=== PATIENT | female | born 1950 | race Caucasian/White ===

== ENCOUNTER → 2016-10-08 | Outpatient (CLI) | payer BC ==
[~2016-10-08] MED LIST: 5HTP PO; ASPI81TA28 PO; CHOL400T PO; COEN1CAP17 PO; CYAN10005 PO; FEXO1TAB49 PO; MULT-506 PO; NUTRTAB PO; OMEP40CA PO; PRAV20TA PO; VALS160T58 PO
[2016-10-08 17:57] LABS: BASO % 0.5 %; BASO ABS # 0.04 K/uL (0-0.2); COMPLETE YES; EOS % 3.7 %; HEMATOCRIT 38.3 % (37-47); IG% 0.4 %; LYMPH % 32.1 %; LYMPH ABS # 2.61 K/uL (1.2-3.4); MEAN CELL VOLUME 86.8 fL (80-100); MEAN CORPUSCULAR HEMOGLOBIN 29.7 pg (25-34); MEAN CORPUSCULAR HGB CONC 34.2 g/dl (32-36); MEAN PLATELET VOLUME 8.7 fL (7.4-10.4); MONO % 7.5 %; NEUT % 55.8 %; PLATELET COUNT 465 K/uL (130-400); RED BLOOD COUNT 4.41 M/uL (4.2-5.4); WHITE BLOOD COUNT 8.12 K/uL (4.8-10.8)
[2016-10-08 19:23] LABS: ALB/GLOB RATIO 1.2 (0.9-2); ALT/SGPT 28 U/L (12-78); AST/SGOT 13 U/L (15-37); BLOOD UREA NITROGEN 23 mg/dl (7-18); BUN/CREATININE RATIO 18.9 (10-20); CALCIUM 8.8 mg/dl (8.5-10.1); CARBON DIOXIDE 24 mmol/L (21-32); CHLORIDE 107 mmol/L (98-107); CHOLESTEROL 184 mg/dl (0-200); GLUCOSE 131 mg/dl (70-99); SODIUM 140 mmol/L (136-145); TRIGLYCERIDES 192 mg/dl (0-150); VERY LOW DENSITY LIPOPROT CALC 38 mg/dl
[2016-10-08 19:34] LABS: ALKALINE PHOSPHATASE 106 U/L (45-117); CHOLESTEROL/HDL RATIO 4.6; HDL CHOLESTEROL 40 mg/dl; LDL CHOLESTEROL CALCULATED 106 mg/dl
== END | disposition home or self-care (01) ==
LOC: C.LABMFLN 13:43
PROVIDERS: ATTEND Family Medicine
DX: I10 Essential (primary) hypertension (principal); E78.5 Hyperlipidemia, unspecified

== ENCOUNTER → 2017-02-24 | Day surgery (SDC) | payer OTHER, BC ==
[2017-02-22 14:27] VITALS: Ht 167.6 cm; Wt 102.3 kg
[~2017-02-24] VITALS: Ht 167.6 cm; Wt 102.3 kg
[~2017-02-24] MED LIST changes: +500ML BSS 0.3ML EPI 1:1000PF IRRIG ONE; +ACETAMINOPHEN 325 MG TAB PO PRN; +AMVISC PLUS 0.8ML SYRINGE INT OCU ONE; +ATROPINE SULFATE 0.1 MG/ML 5ML SYR IV PRN; +BETAXOLOL HCL 0.25% OP SUSP PER DROP CHARGE OPL SCH; +BRIMONIDINE TART 0.2% OP SOLN PER DROP CHARGE ONE; +BSS FLUSH ONE; +DVN80125 PO; +ENDOCOAT 0.85ML SYRINGE INT OCU ONE; +EpHEDrine SULFATE INJ 50 MG/ML AMP IV PRN; +EpINEphrine INJ 1MG/ML AMP 1 MG/ML AMP ONE; +LACTATED RINGER'S 1000ML 500 ML IV SCH; +LIDOCAINE 4% OP SOLN DROP CHARGE ONE; +LIDOCAINE 4% OP SOLN DROP CHARGE OPL SCH; +LIDOCAINE HCL 1% MPF 2 ML VIAL ONE; +MELA10TA2 PO; +MENOPAUSE SUPPORT PO; +MIDAZOLAM HCL 1 MG/ML 2ML VIAL ONE; +MIX: 4ML BSS 1ML EPI 1:1000 PF INSTIL ONE; +MOXIFLOXACIN OPH SOLN PER DROP CHARGE ONE; +NURSING VERBAL MED ORDER ONE; -NUTRTAB PO; +OCUCOAT 1 ML SOLN IO ONE; -OMEP40CA PO; +OMEP40CA41 PO; +POVIDONE-IODINE OP SOLN 30 ML BTL ONE; -PRAV20TA PO; +PROPARACAINE 0.5% OP SOLN PER DROP CHARGE OPL SCH; +PRVC/40 PO; +TOBRAMYCIN/DEXAMETHASONE OPH OINT PER APPLN CHARGE ONE; -VALS160T58 PO
[2017-02-24 09:38] VITALS: TEMP 36.7
[2017-02-24] MEDS: PHENYLEPHRINE HCL 2.5% OP SOLN PER DROP CHARGE OPL SCH ×2 (09:49→09:54)
[2017-02-24] MEDS: TROPICAMIDE 1% OP SOLN PER DROP CHARGE OPL SCH ×2 (09:50→09:55)
--- NOTE | 2017-02-24 09:50 | History & Physical Bridge - [place] ---
H&P Re-Evaluation Bridge Note: I have examined the patient, reviewed the History & Physical and in the interval since the performance of the History & Physical I have noted the following changes of clinical significance: No changes noted
[2017-02-24] MEDS: CYCLOPENTOLATE HCL 1% OP SOLN PER DROP CHARGE OPL SCH ×2 (09:51→09:56)
[2017-02-24] MEDS: MOXIFLOXACIN OPH SOLN PER DROP CHARGE OPL SCH ×2 (09:52→10:06)
--- NOTE | 2017-02-24 10:33 | Discharge Instructions-SurgCtr ---
Discharge Instructions Date of Service Feb 24, 2017. Visit Reason for Visit: Cataract Left Eye Discharge Discharge Diagnosis / Problem: lens implant left eye Discharge Goals Goal(s): Improve function Activity Recommendations Activity Limitations: resume your previous activity Lifting Limitations: no more than 10 pounds Exercise/Sports Limitations: gradually increase as tolerated May Resume Sexual Activity: when tolerated Shower/Bathe: tomorrow Driving or Machine Use: resume 1 day after discharge Anesthesia . Post Anesthesia Instructions: If you have had General Anesthesia or IV Sedation: * Do not drive today. * Resume driving when surgeon permits. * Do not make important decisions or sign legal documents today. * Call surgeon for: 1. Temperature elevations greater than 101 degrees F. 2. Uncontrollable pain. 3. Excessive bleeding. 4. Persistent nausea and vomiting. 5. Medication intolerance (nausea, vomiting or rash). * For nausea and vomiting use only clear liquids such as: tea, soda, bouillon until nausea subsides, then gradually increase diet as tolerated. * If you have any concerns or questions, call your surgeon's office. If physician is unavailable and it is an emergency, call 911 or go to the nearest emergency room. . Instructions / Follow-Up Instructions / Follow-Up ACTIVITY RECOMMENDATIONS: * Light activities. * Mild irritation and blurred vision are common for the first few days. * You may walk outside, read, watch television. * Redness around the white part of the eye is common. MEDICATIONS: Resume previous medications unless instructed otherwise by your surgeon. Start all eye drops at 1 pm today: * Eye drops (today and tomorrow): Prednisone - one drop in operative eye every 3 hours while awake Ofloxacin - one drop in operative eye every 3 hours while awake SPECIAL CARE INSTRUCTIONS: * Tape plastic shield over eye to sleep at night. Call your doctor at with any concerns or problems. FOLLOW UP VISIT: Follow-up with Dr Stokes at [place] office as scheduled. Diet Recommendations Home Diet: no limitations Procedures Procedures Performed: cataract extraction with lens implant Pending Studies Studies pending at discharge: no Medical Emergencies . Who to Call and When: Medical Emergencies: If at any time you feel your situation is an emergency, please call 911 immediately. . Non-Emergent Contact Non-Emergency issues call your: [facility] Helper Call Non-Emergent contact if: your pain is not controlled [phone] . . "Provider Documentation" section prepared by Augustine Stokes. .
--- NOTE | 2017-02-24 10:35 | [facility] Operative Report ---
Operative Report Date of Service Feb 24, 2017. Operative Report 1. PREOPERATIVE DIAGNOSIS: Senile nuclear cataract, left eye. 2. POSTOPERATIVE DIAGNOSIS: Senile nuclear cataract, left eye. 3. PROCEDURE: Phacoemulsification of left cataract with posterior chamber lens implant, type [employer] Lomb, model Hoya [id number], power +22.0 diopters. ANESTHESIA: Local standby. SURGEON: Dr. Stokes. COMPLICATIONS: None. OPERATING TIME: 10 minutes. 4. OPERATION AND FINDINGS: DESCRIPTION OF PROCEDURE: The left pupil was dilated. The anesthetic was administered using a topical technique. The left eye was prepped and draped. A speculum was placed. A clear corneal incision was formed. The chamber was filled with Amvisc Plus and Endocoat. Epinephrine solution was used. A paracentesis was placed. A capsulorrhexis was performed. The nucleus was hydrodissected. The lens was removed with phacoemulsification. Time was 2.29 seconds. The aspiration unit was used to remove the cortex. The capsule was filled with Amvisc Plus. The lens implant was folded and placed into the capsule. The incision was hydrated. The Amvisc was aspirated. The wound was secure. The chamber was deep. The pupil was round. Brimonidine, TobraDex ointment and Vigamox solution were placed. The speculum was removed. The patient was returned to the Recovery Room in stable condition. I attest to the content of the Intraoperative Record and any orders documented therein. Any exceptions are noted below. The scribe's documentation has been prepared in my presence, under my direction and personally reviewed by me in its entirety. I confirm that the note above accurately reflects all work, treatment, procedures, and medical decision making performed by me. I personally scribed for Augustine Stokes M.D. ([email or web address]) on 02/24/17 at 10:35. Electronically submitted by Marcelina Suarez ([email or web address]).
--- NOTE | 2017-02-24 10:58 | Anesthesia Progress Nt - [facility] ---
Anesthesia Post Op Note Date & Time Feb 24, 2017 at 10:58 Vital Signs Pain Intensity: 5.0 Vital Signs Past 12 Hours Date Time Temp Pulse Resp B/P (MAP) Pulse Ox O2 Delivery O2 Flow Rate FiO2 02/24/17 10:46 76 16 162/102 (122) 94 Room Air 02/24/17 09:38 36.7 83 18 149/88 (108) 93 Room Air Notes Mental Status: alert / awake / arousable, participated in evaluation Pt Amnestic to Procedure: Yes Nausea / Vomiting: adequately controlled Pain: adequately controlled Airway Patency, RR, SpO2: stable & adequate BP & HR: stable & adequate Hydration State: stable & adequate Anesthetic Complications: no major complications apparent
[2017-02-24 11:07] VITALS: BP 146/84; PULSE 76; O2SAT 95
== END | disposition home or self-care (01) ==
LOC: X.SURG 09:16
PROVIDERS: ATTEND Specialist
DX: H25.12 Age-related nuclear cataract, left eye (principal); I10 Essential (primary) hypertension; E66.9 Obesity, unspecified; Z88.2 Allergy status to sulfonamides; E78.5 Hyperlipidemia, unspecified

== ENCOUNTER 2019-01-25 06:42 | Inpatient (IN) ==
--- NOTE | 2018-12-26 16:45 | PAT Medication Instructions ---
Medication Instructions Date of Service December 26, 2018 Home Medications cyanocobalamin (vit B-12) 100 mcg tablet 1,000 mcg PO DAILY cholecalciferol (vitamin D3) 2,000 unit tablet 2,000 units PO DAILY fluticasone furoate 27.5 mcg/actuation nasal spray,suspension 2 sprays INTRANASAL DAILY PRN multivitamin tablet 1 tab PO DAILY 5-hydroxytryptophan (5-HTP) 100 mg PO HS aspirin [Aspir-81] 81 mg PO HS biotin 5,000 mcg PO DAILY black cohosh [Menopause Support] 20 mg PO DAILY krill oil 500 mg PO DAILY melatonin 10 mg PO HS PRN omeprazole 40 mg PO HS valsartan-hydrochlorothiazide 1 tab PO HS STOP taking 2 weeks before surgery (or as soon as possible if surgery is within 2 weeks) 5-hydroxytryptophan (5-HTP) 100 mg PO HS biotin 5,000 mcg PO DAILY black cohosh [Menopause Support] 20 mg PO DAILY krill oil 500 mg PO DAILY DO NOT take the morning of surgery cyanocobalamin (vit B-12) 100 mcg tablet 1,000 mcg PO DAILY cholecalciferol (vitamin D3) 2,000 unit tablet 2,000 units PO DAILY multivitamin tablet 1 tab PO DAILY Take morning of surgery With a small sip of water, OTHERWISE NOTHING TO EAT OR DRINK AFTER MIDNIGHT: fluticasone furoate 27.5 mcg/actuation nasal spray,suspension 2 sprays INTRANASAL DAILY PRN (if needed) Take evening before surgery fluticasone furoate 27.5 mcg/actuation nasal spray,suspension 2 sprays INTRANASAL DAILY PRN (if needed) aspirin [Aspir-81] 81 mg PO HS melatonin 10 mg PO HS PRN (if needed) omeprazole 40 mg PO HS valsartan-hydrochlorothiazide 1 tab PO HS Other Notes If you have any questions please call us at [phone] or [phone] or [phone] or [phone]
--- NOTE | 2018-12-27 11:25 | Anesthesiology Consultation ---
Date of Service December 27, 2018 Assessment & Plan (1) Encounter for pre-operative examination: - Awaiting review preop testing. - Awaiting surgeon-ordered PCP clearance scheduled 01/09 (Patricia Elizondo, PAC; [facility]). - Hx of glidescope intubation: s/p Right shoulder arthroscopy: 05/23/15: Grade view 1, Glidescope#3, ETT 7.5 at [facility] [place] Chart Review Chart Review: Patient seen in Pre Admission Testing Teaching & Discussion Pre-Anesthesia Teaching/Discussion Notes: Instructed NPO after midnight before surgery,except medications with 15 cc of water. Medication instructions provided according to the PAT guidelines. History Surgery Operation Date: 01/25/19 09:50 Proposed Procedures p Right Total Knee Arthroplasty - Bobby Prado MD Height/Weight Height: 5 ft 6 in Weight: 104.1 kg Allergies Allergy/AdvReac Type Severity Reaction Status Date / Time propoxyphene AdvReac Unknown felt Verified 12/27/18 11:23 [From Tanesha-N] "high" Sulfa (Sulfonamide AdvReac Unknown dizziness, Verified 12/27/18 11:23 Antibiotics) lightheadedness DEMEROL AdvReac Unknown felt "high" Uncoded 12/27/18 11:23 Medications Home Medications Medication Instructions Recorded Confirmed Last Taken cyanocobalamin (vit B-12) 100 mcg 1,000 mcg PO DAILY tab 09/19/18 12/22/18 Unknown tablet cholecalciferol (vitamin D3) 2,000 2,000 units PO DAILY tab 09/27/18 12/22/18 Unknown unit tablet fluticasone furoate 27.5 2 sprays INTRANASAL DAILY PRN ml 10/18/18 12/22/18 Unknown mcg/actuation nasal spray,suspension multivitamin tablet 1 tab PO DAILY 10/18/18 12/22/18 Unknown 5-hydroxytryptophan (5-HTP) 100 mg PO HS 12/22/18 12/22/18 Unknown aspirin [Aspir-81] 81 mg PO HS 12/22/18 12/22/18 Unknown biotin 5,000 mcg PO DAILY 12/22/18 12/22/18 Unknown black cohosh [Menopause Support] 20 mg PO DAILY 12/22/18 12/22/18 Unknown krill oil 500 mg PO DAILY 12/22/18 12/22/18 Unknown melatonin 10 mg PO HS PRN 12/22/18 12/22/18 Unknown omeprazole 40 mg PO HS 12/22/18 12/22/18 Unknown valsartan-hydrochlorothiazide 1 tab PO HS 12/22/18 12/22/18 Unknown Past Medical History Medical History History of difficult intubation Right shoulder arthroscopy: 05/23/15: Grade view 1, Glidescope#3, ETT 7.5 at [facility] [place] Acid reflux disease controlled Hiatal hernia History of high cholesterol Hypertension Numbness and tingling of right arm + occasional neck pain Osteoarthritis Snores no apneic events TMJ (temporomandibular joint disorder) rare pain; remote hx locking x several years ago Thrombocytosis ? essential vs secondary-- previously followed with hematology but discharged in setting of stable findings/unremarkable workup/negative personal hx of DVT/PE/blood clots Exercise / Class Metabolic Activity III < 4 Walking/Shop/Light housework Past Surgical History Surgical History History of arthroscopy of right knee History of colonoscopy History of hysterectomy History of shoulder surgery RIGHT Past Anesthesia History Difficult Airway (Right shoulder arthroscopy: 05/23/15: Grade view 1, Glidescope#3, ETT 7.5 at [facility] [place]), No Family Hx of Anesthesia Complications and Other *Awareness with cataracts surgery* History of PONV No Hx of PONV and Hx of Motion Sickness (mild) Social History Smoking Status: Never smoker Do You Dip or Chew Tobacco: No Hx Alcohol Use: No Hx Substance Use: No substance use type: does not use Review of Systems Rare heart "racing" feeling. Reflux controlled. Patient denies chest pain, shortness of breath, cough, wheezing, palpitations. Physical Exam Vital Signs VITALS BP 127/82 P 91 TEMP 98.2 SP02 93%RA RESP 18 PHYSICAL Full neck and c-spine range of motion. Full TMJ range of motion. TMD 2.5 finger breaths Mallampati Score 4 (small oral opening) Dentition: intact, crown on molar Lungs: clear throughout to auscultation Cardiac: regular rate and rhythm, no murmurs noted Spine: normal Carotid arteries: negative bruit Extremities: no edema
--- NOTE | 2018-12-27 12:16 | XRay Report ---
XR chest Pre-admission PA/Lat CLINICAL HISTORY: 68 years-old Female presenting with preoperative assessment. TECHNIQUE: PA and lateral views of the chest were obtained. COMPARISON: 05/23/2015. FINDINGS: Atherosclerosis of the aortic arch. Cardiac silhouette normal in size. Lungs and pleural spaces clear . Degenerative changes of the thoracic spine. Upper abdomen normal. IMPRESSION: 1. No acute cardiopulmonary disease. Electronically signed by: Earnest Meza M.D. 12/27/2018 12:15 PM
[2018-12-27 13:20] LABS: Basophils # (auto) 0.03 K/uL (0-0.2); Basophils % (auto) 0.4 %; Eosinophils # (auto) 0.28 K/uL (0-0.5); Eosinophils % (auto) 3.6 %; Hematocrit (blood only) 39.8 % (37-47); Hemoglobin 13.7 g/dL (12.0-16.0); Immature Granulocytes # (auto) 0.03 K/uL (0.00-0.02); Immature Granulocytes % (auto) 0.4 %; Lymphocytes # (auto) 2.49 K/uL (1.2-3.4); Mean Corpuscular Hemoglobin 30.4 pg (25-34); Mean Corpuscular Hgb Conc 34.4 g/dL (32-36); Mean Corpuscular Volume 88.2 fL (80-100); Mean Platelet Volume 9.1 fL (7.4-10.4); Monocytes # (auto) 0.39 K/uL (0.11-0.59); Neutrophils # (auto) 4.57 K/uL (1.4-6.5); Neutrophils % (auto) 58.6 %; Platelet Count 496 K/uL (130-400); RDW Standard Deviation 41.6 fL (36.4-46.3); Red Blood Count 4.51 M/uL (4.2-5.4); White Blood Count 7.79 K/uL (4.8-10.8)
[2018-12-27 13:28] LABS: BUN Creatinine Ratio 22.8 (10-20); Calcium 9.4 mg/dl (8.5-10.1); Creatinine Clr Calc Pharmacy 66.5 ml/min; Est GFR (African American) 67.5; Est GFR (Non-African American) 58.3
[2018-12-27 13:28] LABS: Appearance Urine Clear (Clear); Bilirubin Urine Negative (Negative); Blood Urine Negative (Negative); Color Urine Yellow; Glucose Urine UA Negative (Negative); Ketones Urine Negative (Negative); Leukocyte Esterase Urine Negative (Negative); Nitrite Urine Negative (Negative); Protein Urine Negative (Negative); Specific Gravity Urine 1.024 (1.000-1.030); Urobilinogen Urine Negative (Negative); pH Urine 5.5 (4.5-7.5)
[2018-12-27 13:31] LABS: Estimated Average Glucose 111 mg/dl; Hemoglobin A1C 5.5 % (4.5-5.6)
[2018-12-27 13:34] LABS: Partial Thromboplastin Time 28.3 Seconds (21.0-31.0); Prothrombin Time 10.3 Seconds (9.0-12.0)
--- NOTE | 2019-01-24 21:00 | History and Physical Report ---
DATE OF ADMISSION: 01/25/2019 CHIEF COMPLAINT: Chronic right knee pain and instability. HISTORY OF PRESENT ILLNESS: This is a 68-year-old female patient of Dr. Prado'yasmin complaining of chronic right knee pain and instability, longstanding, now progressively getting worse. The patient has failed conservative treatment including intra-articular injections, viscous supplementations, anti-inflammatories, home exercise program and the use of a brace. The patient has increased pain with weightbearing activities and her pain does interfere with her activities of daily living. The patient has been diagnosed with end-stage osteoarthritis per clinical and radiographic exams. The patient wished to proceed with a right total knee arthroplasty. PAST MEDICAL HISTORY: Hypertension, sleep apnea, osteoarthritis, TMJ, acid reflux, hiatal hernia, obesity. SOCIAL HISTORY: Nonsmoker, nondrinker. PAST SURGICAL HISTORY: Shoulder surgery in 2014. FAMILY HISTORY: Noncontributory. REVIEW OF SYSTEMS: Chronic right knee pain and instability. Otherwise, denies any shortness of breath, chest pain, nausea, vomiting or other joint complaints. MEDICATIONS: Aspirin 81 mg daily, melatonin 10 mg daily, vitamin B12 1000 mcg daily, valsartan 160/25 daily, omeprazole 40 mg 2 times daily, fexofenadine 180 mg daily, multivitamin daily. ALLERGIES: INCLUDE DEMEROL AND SULFA. PHYSICAL EXAMINATION: GENERAL: Well-developed, well-nourished 68-year-old female in no acute distress. She is alert and oriented x3 and pleasant. HEENT: Normocephalic, atraumatic. Extraocular motions are intact. Pupils are equal and reactive to light. HEART: Regular rate and rhythm, no murmurs appreciated. LUNGS: Clear. ABDOMEN: Soft, nontender, bowel sounds present. EXTREMITIES: Right knee limited range of motion of 0-115 positive effusion. Medial joint line tenderness. Neutral alignment with 5/5 strength. NEUROLOGIC: Neurovascularly, she is intact in her right lower extremity. DIAGNOSES: Right knee end-stage osteoarthritis, hypertension, sleep apnea, osteoarthritis, TMJ, acid reflux, hiatal hernia, obesity. PLAN: The patient was advised of her diagnosis. Indications, risks, benefits, postop course have all been reviewed. The patient wish to proceed with a right total knee arthroplasty. Necessary consent forms, preoperative testing and clearances will be obtained.
[~2019-01-25 06:42] MED LIST changes: -500ML BSS 0.3ML EPI 1:1000PF IRRIG ONE; -5HTP PO; -ACETAMINOPHEN 325 MG TAB PO PRN; +ACETAMINOPHEN 500 MG TAB PO SCH; -AMVISC PLUS 0.8ML SYRINGE INT OCU ONE; -ASPI81TA28 PO; -ATROPINE SULFATE 0.1 MG/ML 5ML SYR IV PRN; -BETAXOLOL HCL 0.25% OP SUSP PER DROP CHARGE OPL SCH; -BRIMONIDINE TART 0.2% OP SOLN PER DROP CHARGE ONE; -BSS FLUSH ONE; +CEFAZOLIN 2000MG 2,000 MG/15 ML SYR IV SCH; -CHOL400T PO; -COEN1CAP17 PO; -CYAN10005 PO; -DVN80125 PO; -ENDOCOAT 0.85ML SYRINGE INT OCU ONE; -EpHEDrine SULFATE INJ 50 MG/ML AMP IV PRN; -EpINEphrine INJ 1MG/ML AMP 1 MG/ML AMP ONE; +FAMOTIDINE 20 MG TAB PO SCH; -FEXO1TAB49 PO; +GABAPENTIN 300 MG CAP PO SCH; -LACTATED RINGER'S 1000ML 500 ML IV SCH; -LIDOCAINE 4% OP SOLN DROP CHARGE ONE; -LIDOCAINE 4% OP SOLN DROP CHARGE OPL SCH; -LIDOCAINE HCL 1% MPF 2 ML VIAL ONE; +LR 500ML BOLUS, THEN 15ML/HR IV SCH; -MELA10TA2 PO; -MENOPAUSE SUPPORT PO; +METOCLOPRAMIDE HCL 10 MG TABLET PO SCH; -MIDAZOLAM HCL 1 MG/ML 2ML VIAL ONE; -MIX: 4ML BSS 1ML EPI 1:1000 PF INSTIL ONE; -MOXIFLOXACIN OPH SOLN PER DROP CHARGE ONE; -MULT-506 PO; -NURSING VERBAL MED ORDER ONE; -OCUCOAT 1 ML SOLN IO ONE; -OMEP40CA41 PO; -POVIDONE-IODINE OP SOLN 30 ML BTL ONE; -PROPARACAINE 0.5% OP SOLN PER DROP CHARGE OPL SCH; -PRVC/40 PO; +ROPIVACAINE 0.5% HCL/PF 150 MG, BUPIVACAINE 0.5% MPF 30 ML, EPINEPHrine 30MG/30ML (OR U... INSTIL SCH; -TOBRAMYCIN/DEXAMETHASONE OPH OINT PER APPLN CHARGE ONE; +TRANEXAMIC ACID 1,000 MG **IV Intra-op IV SCH; +TRANEXAMIC ACID 1,000 MG **IV Pre-op IV SCH; +dexAMETHasone 4 MG TAB PO SCH
[2019-01-25] MEDS ORDERED: BUPIVACAINE/EPINEPHRINE 0.25% 1:200,000 30 ML VIAL ONE (07:08)
[2019-01-25] MEDS ORDERED: DEXAMETHASONE SOD INJ 4 MG/ML VIAL ONE (07:08)
[2019-01-25] MEDS ORDERED: BUPIVACAINE 0.5 % 5 MG/1 ML PF 10ML VIAL ONE (07:08)
[2019-01-25] MEDS ORDERED: MIDAZOLAM HCL 1 MG/ML 2ML VIAL ONE ×2 (08:37)
[2019-01-25] MEDS ORDERED: fentaNYL citrate 100 MCG/2 ML VIAL ONE (08:37)
[2019-01-25] MEDS ORDERED: ONDANSETRON INJ 2 MG/ML 2 ML VIAL ONE (08:40)
[2019-01-25] MEDS ORDERED: PROPOFOL IV EMULSION 10 MG/ML 20 ML VIAL IV ONE (08:40)
[2019-01-25] MEDS ORDERED: LIDOCAINE HCL 2% 2 ML VIAL/AMP(20MG/ML) INFIL ONE (08:40)
[2019-01-25] MEDS ORDERED: ONDANSETRON INJ 2 MG/ML 2 ML VIAL IV PRN ×2 (09:07→13:10)
[2019-01-25] MEDS ORDERED: ePHEDrine sulfate 50 MG/ML AMP IV PRN (09:07)
[2019-01-25] MEDS ORDERED: fentaNYL citrate 100 MCG/2 ML VIAL IV PRN (09:07)
[2019-01-25] MEDS ORDERED: ATROPINE SULFATE 0.1 MG/ML 10ML SYR IV PRN (09:07)
--- NOTE | 2019-01-25 09:40 | History & Physical Bridge Note ---
Date of Service January 25, 2019 History & Physical Bridge Note I have examined the patient, reviewed the History & Physical and in the interval since the performance of the History & Physical I have noted the following changes of clinical significance: no changes noted
[2019-01-25] MEDS ORDERED: BACITRACIN INJ 50,000 UNIT VIAL ONE (09:47)
[2019-01-25] MEDS ORDERED: ORTHO JOINT ANESTHETIC ONE (09:47)
--- NOTE | 2019-01-25 11:56 | Post Operative Brief Note ---
Immediate Post Op Note v1 Date of Surgery January 25, 2019 Pre & Post Diagnosis Operation Date: 01/25/19 09:40 Pre-Op Diagnosis: Right Knee End-Stage Osteoarthritis Post-Op Diagnosis: Right Knee End-Stage Osteoarthritis I identified the patient and participated in the time-out.: Yes Procedure Operation Date: 01/25/19 09:40 Actual Procedures p Right Total Knee Arthroplasty(Right) - Bobby Prado MD Surgeon Bobby Prado MD Grain Picker Colin MCCOY Estimated Blood Loss 5 Findings Consistent with Post-Op Diagnosis Specimens Bone cuts Drains Hemovac Drain Anesthesia Type MAC Spinal Regional Complications none Disposition Disposition: Recovery Room Overlapping Procedure I was immediately available: during the entire case.
--- NOTE | 2019-01-25 12:22 | XRay Report ---
XR knee RT 2V routine CLINICAL HISTORY: 68 years-old Female presenting with Surgical Post Op. TECHNIQUE: Frontal and lateral views of the right knee were obtained. COMPARISON: None. FINDINGS: Postsurgical changes of total right knee arthroplasty with patellar resurfacing. Surgical drain in pl willy. Overlying skin fadumo. Expected intra-articular and soft tissue emphysema. No periprosthetic fr acture. No malalignment. IMPRESSION: Expected postsurgical appearance status post total right knee arthroplasty with patellar resurfacing. Electronically signed by: Earnest Meza M.D. 01/25/2019 12:21 PM
--- NOTE | 2019-01-25 12:23 | Operative Report ---
Post Operative Report Pre & Post Diagnosis Operation Date: 01/25/19 09:40 Pre-Op Diagnosis: Right Knee End-Stage Osteoarthritis Post-Op Diagnosis: Right Knee End-Stage Osteoarthritis I identified the patient and participated in the time-out.: Yes Procedure Operation Date: 01/25/19 09:40 Actual Procedures p Right Total Knee Arthroplasty(Right) - Bobby Prado MD Surgeon Bobby Prado MD Pediatrician Colin MCCOY Estimated Blood Loss 5 Findings Consistent with Post-Op Diagnosis Specimens bone cuts Drains 2 Hemovac Anesthesia Type MAC Spinal Regional Complications none Disposition Accompanied Patient To Recovery: No Disposition: Recovery Room Indications 68-year-old female with a chronic bilateral knee pain right greater than left. X-rays demonstrate that she is close to if not [id number] medial compartment on flexion views and she has subluxation of femur on the tibia and she has moderately advanced patellofemoral osteoarthritis. Patient is failed conservative management. Description of Procedure Patient taken to the operating room placed supine on the operating table and anesthetized under spinal MAC regional anesthesia. Exam under anesthesia demonstrated moderately large knee effusion good range of motion crepitation with range of motion no instability. A pneumatic tourniquet was placed about the moderately obese thigh of the right lower extremity. The right lower extremity was prepped and draped in usual fashion. Leg was elevated exsanguinated with an Esmarch bandage and the pneumatic was raised to 325 mm mercury. An anterior incision was made across the right knee. The skin was incised longitudinally subcutaneous flaps were elevated and an incision was made through the medial retinaculum extending up into the mid third of the quadriceps tendon and extended down to the medial tibial tubercle. Intra-articular findings demonstrated tricompartmental DJD with grade 4 DJD on tibial plateau anteromedially grade 3-4 DJD medial femoral condyle grade 4 DJD patella. There was significant red and inflamed synovitis in the gutters and suprapatellar pouch. The knee was exposed by excising the infrapatellar fat pad, excising the meniscal remnants and anterior cruciate ligament. All of the inflamed synovial tissue was resected. The fat pad over the anterior femur was resected for placement of the component in that area. The lateral synovial bands were release. Appropriate releases were performed to balance ligaments. The femur was exposed. The custom femoral cutting block was pinned in position. The distal femoral cutting block was applied. The distal femoral cut was made with the oscillating saw. The size 8 ,4-in-1 cutting block was placed. The anterior and posterior chamfer cuts were made. The knee was extended and a subperiosteal peel lateral release was performed around the patella. The patella width was measured and width was reproduced using freehand cut technique. The 32 millimeter symmetrical patella was used. 3 drill holes are made for the pegs. The tibia was exposed. A custom tibial cutting block was positioned and drill holes were made for the cutting guide. Cutting guide was placed and the proximal cut was made with the oscillating saw. All osteophytes were resected. The lamina clinical analyst was used to assess ligamentous balance and the ligaments were balanced in extension and flexion. The tibia was reexposed and measured for a size E tibial component. This was externally rotated in line with the tibial tubercle and the fixation pins were drilled. The proximal tibia was fashioned with the drill and punch. The size CR 8 femoral trial was inserted. The trial MC inserts were used. The 12 mm insert gave balanced ligaments through full range of motion. The patella tracked slightly laterally with some liftoff so a formal lateral release was performed leaving the synovium intact and the patella tracked centrally. the trials were removed. The orthomix anesthetic cocktail was injected per protocol. The knee was then copiously irrigated with pulsatile lavage antibiotic solution with bacitracin. The final components were cemented with Simplex cement. The final components were [employer] persona right CR narrow size 8 femoral component, size E tibial component, medial congruent 12 mm polyethylene tibial component and a 32 patella symmetrical. While the cement cured with the knee in full extension the Betadine soak was used per protocol. After the cement cured, the knee joint was copiously irrigated with antibiotic solution with bacitracin. 2 drains were brought out laterally and connected to a Hemovac. The quadriceps tendon and medial retinaculum were closed with interrupted [id number] #1 Vicryl sutures. The knee was taken through a full range of motion and repair was secure. The subcutaneous tissues were closed with 2-0 Vicryl sutures and skin was closed with fadumo. Sterile dressings were applied and the patient tolerated the procedure well. Colin MCCOY my physician data control assistant, assisted in soft tissue retraction instrument management leg positioning the closure and will participate in the postoperative care of the patient. I attest to the content of the Intraoperative Record and any orders documented therein. Any exceptions are noted below.
--- NOTE | 2019-01-25 12:27 | Anesthesiology Progress Note ---
Date of Service January 25, 2019 Anesthesia Post Procedure Vital Signs Vital Signs: Temp Pulse Pulse Resp BP Pulse Ox 01/25/19 12:20 89 17 120/77 99 01/25/19 12:10 89 14 110/72 97 01/25/19 12:02 36.8 C 97 H 16 111/52 L 96 01/25/19 07:50 36.6 C 92 H 18 151/86 H 96 Pain Intensity Right Knee: Pain Intensity: 0 Transfer of Care Handoff Completed per policy Notes Mental Status: alert / awake / arousable Patient Amnestic to Procedure: Yes Nausea / Vomiting: adequately controlled Pain: adequately controlled Airway Patency, RR, SpO2: stable & adequate BP & HR: stable & adequate Hydration State: stable & adequate Neuraxial Anesthesia: was administered and sensory block is resolving Anesthetic Complications: no major complications apparent
[2019-01-25] MEDS ORDERED: NALOXONE HCL 0.4 MG/1 ML VIAL/CARP IV PRN (13:10)
[2019-01-25] MEDS ORDERED: bisacodyL 10 MG SUPP PR PRN (13:10)
[2019-01-25] MEDS ORDERED: HYDROmorphone INJ 0.5 MG/0.5 ML SYR IV PRN (13:10)
[2019-01-25] MEDS ORDERED: MAGNESIUM HYDROXIDE SUSP 30 ML UDC PO PRN (13:10)
[2019-01-25] MEDS ORDERED: FLUTICASONE PROPIONATE NA SPR 16 GM BTL PRN (13:10)
[2019-01-25] MEDS ORDERED: METOCLOPRAMIDE HCL INJ 5 MG/ML 2 ML VIAL IV PRN (13:10)
[2019-01-25] MEDS: SODIUM CHLORIDE 0.9% 1000ML 1,000 ML IV SCH ×2 (13:22→21:20)
--- NOTE | 2019-01-25 14:10 | Consultation ---
Date of Consultation January 25, 2019 Assessment & Plan (1) Hyperlipidemia: (2) History of arthroplasty of right knee: 68yoF with hx of HTN, HLD, GERD, hiatal hernia, anxiety, thrombocytosis, TMJ disorder, osteoarthritis s/p R total knee arthroplasty today. Medicine consulted for medical management. S/p R knee arthroplasty Adequate pain control at this time Cefazolin x 2 bags On IVFs 100cc/hr NS Pain control: tylenol 1g Q8H; dilaudid and oxycodone prn Bowel regimen: colace and senokot nelida and dulcolax prn HTN BP elevated to 151/90 post op Given dose of valsartan 80mg x 1 Continue home valsartan 80mg and HCTZ 12.5mg daily, aspirin 81mg daily GERD/hiatal hernia Continue home omeprazole 40mg BID Code: Full DVT prophylaxis: on aspirin 81mg daily, per ortho team Dispo: med/surg (3) HTN (hypertension): (4) GERD (gastroesophageal reflux disease): (5) Hiatal hernia: Supervising Physician Co-Signing Physician Notes Patient seen and examined with Dr. Mae. I agree with their exam findings, revi ew of systems, assessment and plan. I have personally reviewed the lab work and imaging from today. patient feeling well, some pain in right knee but controlled eating well, breathing stable, no chest pain BP was elevated, gave her home medications Exam: WDWN female in NAD, lungs CTA, normal effort, regular S1 S2 no murmurs, abdomen soft, NT, ND +BS - s/p TKA right, pain control, DVT prophylaxis, encourage bedside spirometry - HTN: continue home regimen, check BMP in the morning History of Present Illness Requesting Physician: Dr. Prado Reason for Consultation: Medical management Attending Physician: Bobby Prado MD History of Present Illness 68yoF with hx of HTN, HLD, GERD, hiatal hernia, anxiety, thrombocytosis, TMJ disorder, osteoarthritis s/p R total knee arthroplasty today. Medicine consulted for medical management. Initially required oxygen post op 2L but now on RA. Reports R leg still numb post op and no pain at this time. Had BM this AM. Has not urinated yet post-op (no gonzalez in place). Denies any fever, chills, sob, cp, abdominal pain, nausea, vomiting, diarrhea, constipation. Allergies Allergy/AdvReac Type Severity Reaction Status Date / Time propoxyphene AdvReac Unknown felt Verified 01/25/19 07:41 [From [place]] "high" Sulfa (Sulfonamide AdvReac Unknown dizziness, Verified 01/25/19 07:41 Antibiotics) lightheadedness DEMEROL AdvReac Unknown felt "high" Uncoded 01/25/19 07:41 Home Medications Home Medications Medication Instructions Recorded Confirmed Type cyanocobalamin (vit B-12) 100 mcg 1,000 mcg PO DAILY tab 09/19/18 01/25/19 History tablet cholecalciferol (vitamin D3) 2,000 2,000 units PO DAILY tab 09/27/18 01/25/19 History unit tablet multivitamin tablet 1 tab PO DAILY 10/18/18 01/25/19 History biotin 5,000 mcg PO DAILY 12/22/18 01/25/19 History black cohosh [Menopause Support] 20 mg PO DAILY 12/22/18 01/25/19 History krill oil 500 mg PO DAILY 12/22/18 01/25/19 History melatonin 10 mg PO HS PRN 12/22/18 01/25/19 History 5-hydroxytryptophan (5-HTP) 100 mg 100 mg PO DAILY #90 cap 01/02/19 01/25/19 Rx capsule aspirin 81 mg tablet,delayed 81 mg PO DAILY #90 tab 01/02/19 01/25/19 Rx release fluticasone furoate 27.5 2 sprays INTRANASAL DAILY PRN 01/02/19 01/25/19 Rx mcg/actuation nasal #47.4 ml spray,suspension omeprazole 40 mg capsule,delayed 40 mg PO DAILY #90 cap 01/02/19 01/25/19 Rx release valsartan 80 1 tab PO DAILY #90 tab 01/10/19 01/25/19 Rx mg-hydrochlorothiazide 12.5 mg tablet nystatin 100,000 unit/gram topical 1 appln TOP BID #60 gm 01/18/19 01/25/19 Rx powder Patient History Medical History History of difficult intubation Right shoulder arthroscopy: 05/23/15: Grade view 1, Glidescope#3, ETT 7.5 at [facility] [place] Hiatal hernia History of high cholesterol Numbness and tingling of right arm + occasional neck pain Osteoarthritis Snores no apneic events TMJ (temporomandibular joint disorder) rare pain; remote hx locking x several years ago Acid reflux disease controlled Hypertension Thrombocytosis ? essential vs secondary-- previously followed with hematology but discharged in setting of stable findings/unremarkable workup/negative personal hx of DVT/PE/blood clots Surgical History History of arthroscopy of right knee History of colonoscopy History of hysterectomy History of shoulder surgery RIGHT Social History Preferred Language: Spanish Communication Ability: Effective It Admin Required: No Beliefs That Will Affect Care: None marital status: Current Living Situation: Spouse Other Information That Helps Us Care for You: No Feels Safe at Home: Yes Smoking Status: Never smoker Do You Dip or Chew Tobacco: No ; Hx Alcohol Use: No Hx Substance Use: No Review of Systems Review of Systems: As per HPI Physical Exam Physical Exam: General: In NAD, pleasant eating lunch Neuro: A&O x 4 Pulm: CTAB equal breath sounds bilaterally CV: RRR, no m/r/g Abdomen:+BS, no TTP in all quadrants, non-distended LE: Right lower extremity - knee dressing C/D/I, vac with minimal sanguinous output, skin warm to touch, DP pulse 2+. Left - no LE edema, no calf TTP Results & Data Vital Signs (Past 12 Hours) Vital Signs Temp Pulse Pulse Resp BP Pulse Ox 01/25/19 13:55 36.3 C L 93 H 18 151/90 H 92 01/25/19 13:26 36.9 C 88 18 128/84 94 01/25/19 13:14 36.7 C 90 16 134/83 94 01/25/19 12:40 37.0 C 85 14 130/78 96 01/25/19 12:30 85 15 129/75 96 01/25/19 12:20 89 17 120/77 99 01/25/19 12:10 89 14 110/72 97 01/25/19 12:02 36.8 C 97 H 16 111/52 L 96 01/25/19 07:50 36.6 C 92 H 18 151/86 H 96 PG Care Time/CCT Total # of Minutes Spent Total Time Spent with Patient: Total time spent is greater than 50% in coordination of care (as documented) at patient's floor/unit and/or counseling patient: Resident Activity Tracking Resident Involvement: Resident Care Provided Care Provided: Adult Hospital Medicine
[2019-01-25] MEDS ORDERED: VALSARTAN 80 MG TAB PO ONE (14:28)
[2019-01-25] MEDS: ACETAMINOPHEN 500 MG TAB PO SCH (15:41)
[2019-01-25] MEDS: CEFAZOLIN 2000MG 2,000 MG/15 ML SYR IV SCH (18:08)
[2019-01-25] MEDS: ASPIRIN 81 MG ECTAB PO SCH (20:20)
[2019-01-25] MEDS: DOCUSATE SODIUM 100 MG CAP PO SCH (20:20)
[2019-01-25] MEDS: SENNA 8.6 MG TAB PO SCH (20:20)
[2019-01-25] MEDS: NYSTATIN POWDER 15GM BTL EXT SCH (21:04)
[2019-01-26] MEDS: ACETAMINOPHEN 500 MG TAB PO SCH ×3 (00:14→16:25)
[2019-01-26] MEDS: CEFAZOLIN 2000MG 2,000 MG/15 ML SYR IV SCH (01:47)
[2019-01-26 05:28] LABS: Hematocrit (blood only) 32.8 % (37-47); Hemoglobin 11.3 g/dL (12.0-16.0); Immature Granulocytes # (auto) 0.07 K/uL (0.00-0.02); Immature Granulocytes % (auto) 0.4 %; Lymphocytes # (auto) 1.67 K/uL (1.2-3.4); Lymphocytes % (auto) 10.1 %; Mean Corpuscular Hgb Conc 34.5 g/dL (32-36); Monocytes % (auto) 4.2 %; Neutrophils # (auto) 14.15 K/uL (1.4-6.5); Neutrophils % (auto) 85.3 %; Platelet Count 434 K/uL (130-400); RDW Coefficient of Variation 12.8 % (11.5-14.5); RDW Standard Deviation 40.8 fL (36.4-46.3); Red Blood Count 3.77 M/uL (4.2-5.4); White Blood Count 16.59 K/uL (4.8-10.8)
[2019-01-26 05:54] LABS: Potassium 4.1 mmol/L (3.5-5.1)
[2019-01-26 06:04] LABS: BUN Creatinine Ratio 24.3 (10-20); Calcium 8.5 mg/dl (8.5-10.1); Creatinine Clr Calc Pharmacy 62.1 ml/min; Est GFR (African American) 62.2; Est GFR (Non-African American) 53.7
--- NOTE | 2019-01-26 08:13 | Orthopedic Progress Note ---
Date of Service January 26, 2019 Assessment & Plan (1) Right knee DJD: POD 1 s/p Right TKA PT/OT. WBAT. DVT prophylaxis - ASA, SCD's, DANELLE's Pain management - Oxycodone,Tylenol, IV Dilaudid Dc plans - OPPT when dc'd Subjective Pt sitting up in bed. Awake, alert. Having some pain behind the knee this AM but not severe. Denies SOB,CP,LH. No other complaints this AM. Physical Exam Physical Exam: Dressings C/D/I; Calves soft,NT. Good ROM of the right ankle. States she has some residual numbness in some of her toes which is getting better. Otherwise NV intact. Results & Data Vital Signs (Past 12 Hours) Vital Signs Temp Pulse Resp BP Pulse Ox 01/26/19 07:18 36.8 C 81 18 147/84 H 92 01/26/19 03:25 36.7 C 78 16 130/61 92 01/25/19 23:20 36.9 C 94 H 16 143/88 H 91 Laboratory Results Laboratory Results WBC 16.59 K/uL (4.8-10.8) H 01/26/19 04:54 RBC 3.77 M/uL (4.2-5.4) L 01/26/19 04:54 Hgb 11.3 g/dL (12.0-16.0) L 01/26/19 04:54 Hct 32.8 % (37-47) L 01/26/19 04:54 MCV 87.0 fL (80-100) 01/26/19 04:54 MCH 30.0 pg (25-34) 01/26/19 04:54 MCHC 34.5 g/dL (32-36) 01/26/19 04:54 RDW Std Deviation 40.8 fL (36.4-46.3) 01/26/19 04:54 RDW Coeff of Arabella 12.8 % (11.5-14.5) 01/26/19 04:54 Plt Count 434 K/uL (130-400) H 01/26/19 04:54 MPV 9.0 fL (7.4-10.4) 01/26/19 04:54 Immature Gran % (Auto) 0.4 % 01/26/19 04:54 Neut % (Auto) 85.3 % 01/26/19 04:54 Lymph % (Auto) 10.1 % 01/26/19 04:54 [place] % (Auto) 4.2 % 01/26/19 04:54 Eos % (Auto) 0.0 % 01/26/19 04:54 Baso % (Auto) 0.0 % 01/26/19 04:54 Immature Gran # (Auto) 0.07 K/uL (0.00-0.02) H 01/26/19 04:54 Neut # (Auto) 14.15 K/uL (1.4-6.5) H 01/26/19 04:54 Lymph # (Auto) 1.67 K/uL (1.2-3.4) 01/26/19 04:54 [place] # (Auto) 0.70 K/uL (0.11-0.59) H 01/26/19 04:54 Eos # (Auto) 0.00 K/uL (0-0.5) 01/26/19 04:54 Baso # (Auto) 0.00 K/uL (0-0.2) 01/26/19 04:54 PT 10.3 Seconds (9.0-12.0) 12/27/18 11:41 INR 1.0 (0.9-1.1) 12/27/18 11:41 APTT 28.3 Seconds (21.0-31.0) 12/27/18 11:41 PTT Ratio 1.0 12/27/18 11:41 Sodium 140 mmol/L (136-145) 01/26/19 04:54 Potassium 4.1 mmol/L (3.5-5.1) 01/26/19 04:54 Chloride 109 mmol/L (98-107) H 01/26/19 04:54 Carbon Dioxide 23 mmol/L (21-32) 01/26/19 04:54 Anion Gap 8.0 (3-11) 01/26/19 04:54 BUN 26 mg/dl (7-18) H 01/26/19 04:54 Creatinine 1.07 mg/dl (0.6-1.2) 01/26/19 04:54 Est Cr Clr Drug Dosing 62.1 ml/min 01/26/19 04:54 Est GFR ( Amer) 62.2 01/26/19 04:54 Est GFR (Non-Af Amer) 53.7 01/26/19 04:54 BUN/Creatinine Ratio 24.3 (10-20) H 01/26/19 04:54 Glucose 108 mg/dl (70-99) H 01/26/19 04:54 Estimat Average Glucose 111 mg/dl 12/27/18 11:41 Hemoglobin A1c 5.5 % (4.5-5.6) 12/27/18 11:41 Calcium 8.5 mg/dl (8.5-10.1) 01/26/19 04:54 Albumin 4.0 gm/dl (3.4-5.0) 12/27/18 11:41 Urine Color Yellow 12/27/18 Unknown Urine Appearance Clear (Clear) 12/27/18 Unknown Urine pH 5.5 (4.5-7.5) 12/27/18 Unknown Ur Specific [place] 1.024 (1.000-1.030) 12/27/18 Unknown Urine Protein Negative (Negative) 12/27/18 Unknown Urine Glucose (UA) Negative (Negative) 12/27/18 Unknown Urine Ketones Negative (Negative) 12/27/18 Unknown Urine Blood Negative (Negative) 12/27/18 Unknown Urine Nitrite Negative (Negative) 12/27/18 Unknown Urine Bilirubin Negative (Negative) 12/27/18 Unknown Urine Urobilinogen Negative (Negative) 12/27/18 Unknown Ur Leukocyte Esterase Negative (Negative) 12/27/18 Unknown Blood Type A Positive 12/27/18 11:41 Antibody Screen NEGATIVE 12/27/18 11:41
[2019-01-26] MEDS: VALSARTAN 80 MG TAB PO SCH (08:22)
[2019-01-26] MEDS: DOCUSATE SODIUM 100 MG CAP PO SCH ×2 (08:23→20:56)
[2019-01-26] MEDS: PANTOprazole 40 MG TAB PO SCH (08:23)
[2019-01-26] MEDS: CHOLECALCIFEROL 1,000 UNITS TAB PO SCH (08:23)
[2019-01-26] MEDS: hydroCHLOROthiazide 25 MG TAB PO SCH (08:23)
[2019-01-26] MEDS: CYANOCOBALAMIN 500 MCG TABLET (VITAMIN B-12) PO SCH (08:23)
[2019-01-26] MEDS: ASPIRIN 81 MG ECTAB PO SCH ×2 (08:24→20:55)
[2019-01-26] MEDS: MULTIVITAMIN TAB PO SCH (08:24)
[2019-01-26] MEDS: NYSTATIN POWDER 15GM BTL EXT SCH ×2 (08:24→20:56)
[2019-01-26] MEDS: OXYCODONE HCL IR 5 MG TAB (IMMEDIATE RELEASE) PO PRN ×3 (08:27→23:24)
--- NOTE | 2019-01-26 08:29 | Anesthesiology Progress Note ---
Date of Service January 26, 2019 Anesthesia Post Procedure Vital Signs Vital Signs: Temp Pulse Pulse Resp BP Pulse Ox 01/26/19 07:18 36.8 C 81 18 147/84 H 92 01/26/19 03:25 36.7 C 78 16 130/61 92 01/25/19 23:20 36.9 C 94 H 16 143/88 H 91 01/25/19 19:44 37.2 C 103 H 16 137/71 93 01/25/19 16:11 36.8 C 100 H 20 148/89 H 92 01/25/19 15:40 99 H 123/97 01/25/19 13:55 36.3 C L 93 H 18 151/90 H 92 01/25/19 13:26 36.9 C 88 18 128/84 94 01/25/19 13:14 36.7 C 90 16 134/83 94 01/25/19 12:40 37.0 C 85 14 130/78 96 01/25/19 12:30 85 15 129/75 96 01/25/19 12:20 89 17 120/77 99 01/25/19 12:10 89 14 110/72 97 01/25/19 12:02 36.8 C 97 H 16 111/52 L 96 Pain Intensity Right Knee: Pain Intensity: 0 Notes Mental Status: alert / awake / arousable and participated in evaluation Patient Amnestic to Procedure: Yes Nausea / Vomiting: adequately controlled Pain: adequately controlled Airway Patency, RR, SpO2: stable & adequate BP & HR: stable & adequate Hydration State: stable & adequate Neuraxial Anesthesia: was administered and sensory block resolved Anesthetic Complications: no major complications apparent and Pt Satisfied with anesthetic care
--- NOTE | 2019-01-26 08:52 | Family Medicine Progress Note ---
Date of Service January 26, 2019 Assessment & Plan (1) History of arthroplasty of right knee: 68yoF with hx of HTN, HLD, GERD, hiatal hernia, anxiety, thrombocytosis, TMJ disorder, osteoarthritis s/p R total knee arthroplasty today. Medicine consulted for medical management. #S/p R knee arthroplasty Patient recovering well meeting all postoperative milestones, tolerating her diet, voiding, stooling per report. She is currently status post 2 bags of Cefazolin and IVF have been DC'd. -Pain control: tylenol 1g Q8H; dilaudid and oxycodone prn -Adequate pain control at this time -has only used 1 PRN oxycodone -Bowel regimen: colace and senokot vernon and dulcolax prn #HTN BP elevated to 151/90 post op -> Given dose of valsartan 80mg x 1 -Continue home valsartan 80mg and HCTZ 12.5mg daily, aspirin 81mg daily -Adequate control currently may be secondary to pain -We will continue to monitor #GERD/hiatal hernia -Continue home omeprazole 40mg BID FENa:Regular Code Status: Full code DVT PPX: ASA 81 mg per Ortho PT/OT: Consulted Dispo: Home when cleared by Ortho Pollo Chen MD PGY 2, FCM This chart was completed utilizing [employer] voice recognition software. Grammatical errors, random word insertions, pronoun errors, and in complete sentences are an occasional consequence of the system. Any questions or concerns about the content, text, or information contained within the body of this dictation should be addressed directly to the physician for clarification. Supervising Physician Co-Signing Physician Notes Patient seen and examined with Dr. Chen. I agree with their exam findings, review of systems, assessment and plan. I have personally reviewed the lab work and imaging from today. patient sitting up in a chair, feels great, minimal pain eating well, breathing normal, no chest pain/pressure labs are stable, specifically BUN/Cr Exam: WDWN female in NAD, lungs CTA, normal effort, regular S1 S2 no murmurs, abdomen soft, NT, ND +BS right knee swollen, wrapped, tender - s/p TKA right, pain control, DVT prophylaxis, encourage bedside spirometry - HTN: continue home regimen, Cr is stable, BP stable stable for d/c to home, medicine will sign off at this time Subjective Patient sitting up in a chair this morning in no acute distress. She is postop day 1 from TKA, reports pain is well controlled, just received a PRN oxycodone. Patient is tolerating her diet, voiding, does not remember having a bowel movement however per report she did, and sleeping okay. No acute events overnight, all questions answered no concerns. Physical Exam Physical Exam: General: No acute distress HEENT: Normocephalic atraumatic Neck: No significant lymphadenopathy, trachea midline, normal to visual inspection Cardiac: Regular rate and rhythm, normal S1, normal S2, I did not appreciated any significant murmurs rubs or gallops, I did not appreciate any significant pedal edema, No calf tenderness, capillary refill is less than 3 seconds Respiratory: Clear to auscultation bilaterally with symmetrical chest rise, I did not appreciate any significant wheezes, rales, rhonchi, no increased work of breathing GI: Normal bowel sounds, soft, nontender in all 4 quadrants, nondistended MSK: No sensory or motor changes, moves all extremities without issue, extremities are warm and well-perfused, right lower extremity bandaged and place d in full extension. Skin: Surgical site clean dry and intact Neuro: Alert and oriented x4 Psych: Calm, cooperative, logical thought process Results & Data Vital Signs (Past 12 Hours) Vital Signs Temp Pulse Resp BP Pulse Ox 01/26/19 07:18 36.8 C 81 18 147/84 H 92 01/26/19 03:25 36.7 C 78 16 130/61 92 01/25/19 23:20 36.9 C 94 H 16 143/88 H 91 Laboratory Results 01/26/19 01/26/19 01/26/19 Range/Units 04:54 04:54 04:54 WBC 16.59 H (4.8-10.8) K/uL RBC 3.77 L (4.2-5.4) M/uL Hgb 11.3 L (12.0-16.0) g/dL Hct 32.8 L (37-47) % MCV 87.0 (80-100) fL MCH 30.0 (25-34) pg MCHC 34.5 (32-36) g/dL RDW Std Deviation 40.8 (36.4-46.3) fL RDW Coeff of Arabella 12.8 (11.5-14.5) % Plt Count 434 H (130-400) K/uL MPV 9.0 (7.4-10.4) fL Immature Gran % (Auto) 0.4 % Neut % (Auto) 85.3 % Lymph % (Auto) 10.1 % [place] % (Auto) 4.2 % Eos % (Auto) 0.0 % Baso % (Auto) 0.0 % Immature Gran # (Auto) 0.07 H (0.00-0.02) K/uL Neut # (Auto) 14.15 H (1.4-6.5) K/uL Lymph # (Auto) 1.67 (1.2-3.4) K/uL [place] # (Auto) 0.70 H (0.11-0.59) K/uL Eos # (Auto) 0.00 (0-0.5) K/uL Baso # (Auto) 0.00 (0-0.2) K/uL Sodium 140 (136-145) mmol/L Potassium 4.1 (3.5-5.1) mmol/L Chloride 109 H (98-107) mmol/L Carbon Dioxide 23 (21-32) mmol/L Anion Gap 8.0 (3-11) BUN 26 H (7-18) mg/dl Creatinine 1.07 (0.6-1.2) mg/dl Est Cr Clr Drug Dosing 62.1 ml/min Est GFR ( Amer) 62.2 Est GFR (Non-Af Amer) 53.7 BUN/Creatinine Ratio 24.3 H (10-20) Glucose 108 H (70-99) mg/dl Calcium 8.5 (8.5-10.1) mg/dl Hepatitis C Ab Screen Neg (Neg) Medications Administered Current Inpatient Medications Acetaminophen (Tylenol) 1,000 mg PO Q8H [facility] Stop: 02/24/19 15:59 Last Admin: 01/26/19 08:22 Dose: 1,000 mg Documented by: Aspirin (Ecotrin Ectab) 81 mg PO BID [facility] Stop: 02/24/19 20:59 Last Admin: 01/26/19 08:24 Dose: 81 mg Documented by: Bisacodyl (Dulcolax) 10 mg AL DAILY PRN PRN Reason: Constipation Stop: 02/24/19 13:09 Cyanocobalamin (Vitamin B-12) 1,000 mcg PO DAILY [facility] Stop: 02/25/19 08:59 Last Admin: 01/26/19 08:23 Dose: 1,000 mcg Documented by: Diphenhydramine HCl (Benadryl Capsule) 25 mg PO Q8H PRN PRN Reason: Itching Stop: 02/24/19 13:09 Docusate Sodium (Colace) 100 mg PO BID [facility] Stop: 02/24/19 20:59 Last Admin: 01/26/19 08:23 Dose: 100 mg Documented by: Fluticasone Propionate (Flonase) 2 sprays NA DAILY PRN PRN Reason: SEASONAL ALLERGIES Stop: 02/24/19 13:09 Hydrochlorothiazide (Hctz) 12.5 mg PO DAILY [facility] Stop: 02/25/19 08:59 Last Admin: 01/26/19 08:23 Dose: 12.5 mg Documented by: Hydromorphone HCl (Dilaudid) 0.5 mg IV Q4H PRN PRN Reason: Pain Stop: 02/08/19 13:09 Magnesium Hydroxide (Milk Of Magnesia) 30 ml PO Q6H PRN PRN Reason: Constipation Stop: 02/24/19 13:09 Metoclopramide HCl (Reglan) 10 mg IV Q6H PRN PRN Reason: Nausea And Vomiting Stop: 02/24/19 13:09 Multivitamins (Multivitamin Tab) 1 tab PO QAM [facility] Stop: 02/25/19 08:59 Last Admin: 01/26/19 08:24 Dose: 1 tab Documented by: Naloxone HCl (Narcan) 0.1 mg IV Q5M PRN PRN Reason: Oversedation/Resp Depression Stop: 02/24/19 13:09 Nystatin (Mycostatin) 1 appln EXT BID [facility] Stop: 02/24/19 20:59 Last Admin: 01/26/19 08:24 Dose: 1 appln Documented by: Ondansetron HCl (Zofran) 4 mg IV Q6H PRN PRN Reason: Nausea And Vomiting Stop: 02/24/19 13:09 Oxycodone HCl (Roxicodone Immediate Rel) 5 - 10 mg PO Q4H PRN PRN Reason: Pain Stop: 10/30/19 13:09 Last Admin: 01/26/19 08:27 Dose: 5 mg Documented by: Pantoprazole Sodium (Protonix) 40 mg PO DAILY [facility] Stop: 02/25/19 08:59 Last Admin: 01/26/19 08:23 Dose: 40 mg Documented by: Sennosides (Senokot) 17.2 mg PO HS [facility] Stop: 02/24/19 20:59 Last Admin: 01/25/19 20:20 Dose: 17.2 mg Documented by: Valsartan (Diovan) 80 mg PO DAILY [facility] Stop: 02/25/19 08:59 Last Admin: 01/26/19 08:22 Dose: 80 mg Documented by: Vitamin D (Vitamin D3) 2,000 units PO DAILY [facility] Stop: 02/25/19 08:59 Last Admin: 01/26/19 08:23 Dose: 2,000 units Documented by: PG Care Time/CCT Total # of Minutes Spent Total Time Spent with Patient: Total time spent is greater than 50% in coordination of care (as documented) at patient's floor/unit and/or counseling patient: Resident Activity Tracking Resident Involvement: Resident Care Provided Care Provided: Adult Hospital Medicine
[2019-01-26] MEDS ORDERED: MULTIVITAMIN TAB PO SCH (09:00)
[2019-01-26] MEDS ORDERED: VALSARTAN/HCTZ 80/12.5MG TAB PO SCH (09:00)
[2019-01-26] MEDS: SENNA 8.6 MG TAB PO SCH (20:55)
[2019-01-27] MEDS: ACETAMINOPHEN 500 MG TAB PO SCH ×4 (00:19→23:18)
[2019-01-27] MEDS: OXYCODONE HCL IR 5 MG TAB (IMMEDIATE RELEASE) PO PRN ×4 (03:28→21:24)
[2019-01-27 05:27] LABS: Hematocrit (blood only) 35.8 % (37-47); Hemoglobin 11.8 g/dL (12.0-16.0); Mean Corpuscular Hemoglobin 29.5 pg (25-34); Mean Corpuscular Volume 89.5 fL (80-100); Platelet Count 428 K/uL (130-400); RDW Coefficient of Variation 13.3 % (11.5-14.5); RDW Standard Deviation 43.3 fL (36.4-46.3); White Blood Count 10.32 K/uL (4.8-10.8)
[2019-01-27 06:00] LABS: BUN Creatinine Ratio 27.3 (10-20); Calcium 8.5 mg/dl (8.5-10.1); Creatinine Clr Calc Pharmacy 69.2 ml/min; Est GFR (African American) 70.9; Est GFR (Non-African American) 61.2; Potassium 3.8 mmol/L (3.5-5.1)
--- NOTE | 2019-01-27 07:30 | Orthopedic Progress Note ---
Date of Service January 27, 2019 Assessment & Plan (1) Right knee DJD: POD 2 s/p Right TKA PT/OT. WBAT. DVT prophylaxis - ASA, SCD's, DANELLE's Pain management - Oxycodone,Tylenol, IV Dilaudid Dc plans - OPPT today. Subjective Pt sitting up in bed. Awake, alert. Pain is only issues, states oxycodone does help. Denies SOB,CP,LH. No other complaints this AM. Did well in PT Physical Exam Physical Exam: Right knee silverlon dressing c/d/i, no drainage. Toes/ ankle mobile No calf tenderness. A&Ox3. N/V+. Results & Data Vital Signs (Past 12 Hours) Vital Signs Temp Pulse Resp BP Pulse Ox 01/26/19 23:27 36.8 C 81 16 152/74 H 95
[2019-01-27] MEDS: ASPIRIN 81 MG ECTAB PO SCH ×2 (08:49→19:27)
[2019-01-27] MEDS: hydroCHLOROthiazide 25 MG TAB PO SCH (08:49)
[2019-01-27] MEDS: DOCUSATE SODIUM 100 MG CAP PO SCH ×2 (08:49→19:27)
[2019-01-27] MEDS: MULTIVITAMIN TAB PO SCH (08:50)
[2019-01-27] MEDS: VALSARTAN 80 MG TAB PO SCH (08:50)
[2019-01-27] MEDS: CYANOCOBALAMIN 500 MCG TABLET (VITAMIN B-12) PO SCH (08:50)
[2019-01-27] MEDS: PANTOprazole 40 MG TAB PO SCH (08:50)
[2019-01-27] MEDS: NYSTATIN POWDER 15GM BTL EXT SCH ×2 (08:50→19:26)
[2019-01-27] MEDS: CHOLECALCIFEROL 1,000 UNITS TAB PO SCH (08:51)
[2019-01-27] MEDS: SENNA 8.6 MG TAB PO SCH (19:27)
[2019-01-28] MEDS: OXYCODONE HCL IR 5 MG TAB (IMMEDIATE RELEASE) PO PRN ×3 (01:04→10:30)
[2019-01-28] MEDS: ACETAMINOPHEN 500 MG TAB PO SCH (08:18)
[2019-01-28] MEDS: MULTIVITAMIN TAB PO SCH (08:18)
[2019-01-28] MEDS: PANTOprazole 40 MG TAB PO SCH (08:18)
[2019-01-28] MEDS: DOCUSATE SODIUM 100 MG CAP PO SCH (08:18)
[2019-01-28] MEDS: CHOLECALCIFEROL 1,000 UNITS TAB PO SCH (08:18)
[2019-01-28] MEDS: NYSTATIN POWDER 15GM BTL EXT SCH (08:19)
[2019-01-28] MEDS: CYANOCOBALAMIN 500 MCG TABLET (VITAMIN B-12) PO SCH (08:19)
[2019-01-28] MEDS: ASPIRIN 81 MG ECTAB PO SCH (08:19)
[2019-01-28] MEDS: VALSARTAN 80 MG TAB PO SCH (08:19)
[2019-01-28] MEDS: hydroCHLOROthiazide 25 MG TAB PO SCH (08:19)
--- NOTE | 2019-01-28 08:20 | Orthopedic Progress Note ---
Date of Service January 28, 2019 Assessment & Plan (1) Right knee DJD: POD 3 s/p Right TKA PT/OT. WBAT. DVT prophylaxis - ASA, SCD's, DANELLE's Pain management - Oxycodone,Tylenol, IV Dilaudid Dc plans -planning for outpatient PT. Plan for discharge to home today. Subjective Postop day 3 status post right total knee arthroplasty. Patient is currently lying in bed. No overt complaints. Pain appears to be controlled. She is not having any nausea this morning. Denies chest pain or shortness of breath. We discussed the possibility of discharge home today and she was in favor of that. Physical Exam Physical Exam: Dressing is clean, dry, and intact. No overt erythema around the dressing or knee. The knee does have some swelling but is not tense. Calves are soft and nontender. Neurovascular intact. Toes are mobile. Results & Data Vital Signs (Past 12 Hours) Vital Signs Temp Pulse Resp BP Pulse Ox 01/28/19 07:38 37.1 C 91 H 18 143/83 H 90 01/28/19 06:26 36.8 C 96 H 16 147/70 H 93 01/27/19 22:49 36.9 C 90 16 136/81 96
--- NOTE | 2019-02-01 02:21 | Discharge Summary ---
HISTORY OF PRESENT ILLNESS: This is a 68-year-old female patient of Dr. Prado'yasmin complaining of chronic right knee pain and instability, longstanding, progressively getting worse. The patient failed conservative treatment and elected to proceed with a right total knee arthroplasty. PAST MEDICAL HISTORY: Hypertension, sleep apnea, osteoarthritis, TMJ, acid reflux, hiatal hernia, obesity. POSTOPERATIVE COURSE: The patient underwent a right total knee arthroplasty on 01/25/2019. She was followed closely with medical consultation, DVT prophylaxis in the form of aspirin, physical therapy and pain control. The patient developed significant nausea and pain on postoperative day #2, so we kept her in the hospital for another night due to those reasons. On postoperative day #3, she stated her pain was controlled, much better. She had no nauseousness, no vomiting and she was discharged on postoperative day #3. PHYSICAL EXAMINATION: Right knee Silverlon dressing was clean, dry and intact. There was no drainage or redness. She had no calf tenderness. Negative Homans sign. Neurologically and neurovascularly, she is intact in the right lower extremity. Toes and ankle were mobile. DIAGNOSES: Status post right total knee arthroplasty. She has a history of hypertension, sleep apnea, osteoarthritis, TMJ, acid reflux, hiatal hernia and obesity. PLAN: The patient was discharged home with outpatient physical therapy. She will continue her preadmission medications with the addition of aspirin for DVT prophylaxis and the addition of pain medications. The patient will follow up as scheduled as an outpatient.
== END 2019-01-28 11:22 | disposition home or self-care (01) | DRG 470 ==
LOC: ASU 06:42 → 3E 12:09